=== PATIENT | male | born 1995 | race Hispanic/Latino ===

== ENCOUNTER 2021-09-20 07:46 | Emergency (ER) | payer OTHER, SELFPAY ==
[2021-09-20 07:49] VITALS: BP 104/83; PULSE 64; RESP 14; TEMP 36.2; O2SAT 99; BMI 27.0
--- NOTE | 2021-09-20 08:25 | RAD_ITS ---
STUDY: X-RAY - RIGHT WRIST REASON FOR EXAM: Male, 25 years old. Injury/Pain TECHNIQUE: 3 view(s) of the wrist were obtained. COMPARISON: None. FINDINGS: Normal visualized distal radius and ulna. Normal radiocarpal articulation. Normal distal radioulnar articulation. Normal carpal bones. Normal carpal articulations. Normal carpometacarpal articulation of the thumb. Normal second through fifth carpometacarpal articulations. Normal visualized metacarpal bones. The soft tissue structures are unremarkable. RAD/Wrist min 3 Views IMPRESSION: Normal x-ray examination of the wrist. Electronically Signed: Silas Ashford MD at 8:52 EDT ,
--- NOTE | 2021-09-20 08:28 | EDS_ITS ---
HPI History of Present Illness HPI Narrative: Patient presents with puncture wound to his right wrist that occurred today while at work. Patient states he was holding a board with his right wrist and used a nail gun with his left hand. Patient states that the nail skipped off of the board went into his right wrist. Patient admits to some numbness and tingling in his index and middle fingers. Patient states his pain is worse with any movement. Patient describes it as sharp and aching. Patient states nothing seems to help with the pain. Patient is unsure of his last tetanus. Chief Complaint: Upper Extremity Injury Informant: patient Occured/Mechanism Mechanism/Context: Yes puncture wound Onset/Context/Timing Onset: Today Context: Sudden Onset Timing: Continuous Quality of Pain: Sharp and Aching Location: Right wrist Worsened by: Movement Relieved by: Nothing Associated Symptoms Associated Symptoms: Positive for Parasthesia; Negative for Weakness or Loss of Funtion Narrative Tetanus Immunization: Unknown PFSH PFS Medical History no medical history no medical history Home Medications cephalexin 500 mg capsule 500 mg PO Q6 #40 CAPSULES 09/20/21 [Rx Last Taken Unknown] Allergy/AdvReac Type Severity Reaction Status Date / Time No Known Allergies Allergy Verified 09/20/21 07:49 Surgical History no surgical history no surgical history ROS ROS ED Constitutional Constitutional ED: Denies chills or fever(s) Eyes Eyes: Denies blurry vision or change in vision ENT ENT ED: Denies rhinorrhea or sore throat Cardiovascular Cardiovascular: Denies chest pain or palpitations Respiratory/Chest Respiratory/Chest: Denies cough or dyspnea Gastrointestinal Gastrointestinal: Denies nausea or vomiting Genitourinary Genitourinary ED: Denies dysuria or hematuria Musculoskeletal Musculoskeletal: Denies back pain or neck pain Integumentary Denies abscess or rash Neurologic Neurologic: Denies headache(s) or weakness Allergic/Immunologic Allergic/Immunologic ED: Denies mouth swelling or urticaria EXAM Physical Exam Const Vital Signs: 09/20/21 07:49 Temperature 97.2 F L Temperature Source Temporal Pulse Rate 64 Respiratory Rate 14 Blood Pressure 104/83 H Blood Pressure Mean 90 Pulse Ox 99 Oxygen Delivery Method Room Air Positive well nourished and well developed General Appearance ED: well developed and NAD HEENT Reports moist mucous membranes normocephalic Neck full ROM Extremity Extremity Narrative: There is a puncture wound noted over the volar aspect of the right wrist near the radial styloid. There is minimal bleeding. Radial pulses are equal bilaterally. Range of motion was limited in all motions of the right wrist secondary to pain. Sensation was slightly diminished to light touch in the volar aspect of the right index and middle fingers. There is good sensation over the thumb and along the radial aspect of the ring finger. Sensation was in tact to light touch in the ulnar and radial distributions as well. Strength is 5/5 in the radial, median, and ulnar areas. Neuro oriented x3, CN's II-XII intact bilaterally, moves all extremities and no focal motor deficits Sensorium / Orientation: alert Psych mental status grossly normal Skin Trauma: puncture MDM MDM MDM Narrative Medical decision making narrative: X-rays of the right wrist were obtained. There are 3 views. On my interpretation, there is no acute fracture. There is no dislocation. There is no soft tissue swelling. Radiologist also interpreted the x-rays and agrees. Patient was given a tetanus booster. Patient was given a dose of Keflex. Patient was given a dose of [place] here. Bacitracin dressing was applied to the puncture wound. Patient was given a prescription for Keflex. Patient was instructed to keep the area clean. Patient was instructed to follow-up with the [facility] or his primary care physician in 5 to 7 days. Patient and coworker understood and were agreeable with the plan. All questions were answered. Discharge Plan Triage Chief Complaint: Upper Extremity Injury ED Provider: Jose Zamora Dx/Rx/DC Orders Clinical Impression: Puncture wound of right wrist Instructions: ED Puncture Wound (General) Prescriptions: New cephalexin [cephalexin] 500 mg capsule 500 mg PO Q6 Qty: 40 0RF Primary Care Provider: Care Physician,No Primary Referrals: Care Physician,No Primary [Primary Care Provider] - [facility] [NON-STAFF] - 5-7 Days Disposition Disposition: Home, Self Care
[2021-09-20] MEDS: Cephalexin 500 MG Capsule PO (08:57)
[2021-09-20] MEDS: Diphth,Pertuss(Acell),Tet Vac 0.5 ML Vial IM (08:57)
[2021-09-20] MEDS: HYDROcodone Bitartrate/Apap 5/325 Tablet PO (08:57)
[2021-09-20 09:03] VITALS: RESP 18
== END 2021-09-20 09:12 | disposition home or self-care (01) ==
PROVIDERS: Emergency Provider Emergency Medicine; Visit Provider Emergency Medicine
DX: S61.531A Puncture wound without foreign body of right wrist, initial encounter (principal); Z23 Encounter for immunization; W29.4XXA Contact with nail gun, initial encounter; Y99.0 Civilian activity done for income or pay
CPT/HCPCS: 73110; 90471; 90715; 99283